=== PATIENT | female | born 1990 | race Caucasian/White ===

== ENCOUNTER 2018-12-04 16:06 | Outpatient (CLI) | payer BC, SELFPAY | END 2018-12-04 16:26 | PROVIDERS: PCP General Practice; Visit Provider General Practice | DX: C73 Malignant neoplasm of thyroid gland (principal) | CPT/HCPCS: 36415; 84443 ==

== ENCOUNTER 2019-07-27 19:27 | Emergency (ER) | payer BC, SELFPAY ==
[2019-07-27 19:31] VITALS: BP 120/76; PULSE 97; RESP 18; TEMP 37.2; O2SAT 97
--- NOTE | 2019-07-27 19:45 | DI.RAD_ITS ---
EXAM: XR CHEST 2V PA LATERAL INDICATION: cough. COMPARISON: No exams were available for comparison TECHNIQUE: 2D digital imaging was performed. FINDINGS: The lungs are well expanded and free of infiltrate. There is no pleural effusion. The heart is not enlarged. The hilar structures, mediastinum and tracheal air column are intact. IMPRESSION: No evidence of acute cardiopulmonary disease.
--- NOTE | 2019-07-27 19:47 | ED.GENADUL_ITS ---
Discharge Plan Disposition Patient Disposition: HOME Discharge Details Chief Complaint: RespSymp Clinical Impression: URI (upper respiratory infection) Primary Care Provider: Abdirizak Michael ED Provider: Davonte Jain Home Meds and New Rx's Prescriptions: Continued (21) 1 EACH tablet 1 tab-cap PO DAILY Qty: 4 RF: 6 fluticasone furoate 27.5 mcg/actuation [place],Suspension See Rx Instructions .ROUTE .COMPLEX RF: 0 sumatriptan succinate [Imitrex] 25 MG tablet 25 mg PO BID PRN PRN (Reason: Headache) Qty: 6 RF: 0 Discharge Instructions Instructions: Albuterol (By breathing), How to Stop Smoking (ED), Upper Respiratory Infection (ED) Additional Instructions: Please drink plenty of fluids to stay hydrated. Use albuterol inhaler with spacer: Inhaled 2 puffs every 4 hours as needed for wheezing. Please contact your primary care physician to arrange follow-up. Call tomorrow. Return to the ER for any worsening or new concerning symptoms. Referrals: Abdirizak Michael MD [Primary Care Provider] - Medical Decision Making 19:50 --29-year-old female smoker here with URI symptoms including sinus congestion and cough with intermittent fever over the past 2 weeks, now with more persistent, worsening cough for the past few days. Heart rate is slightly elevated. She saturating well with no respiratory distress. She does have some wheeze bilateral lungs. Consider pneumonia. Plan to check chest x-ray. Suspect reactive airway disease. Plan to treat with albuterol neb and reassess. 20:25 --patient reassessed after neb and breathing much easier. Lungs clear. Chest x-ray was reviewed and interpreted by radiology: No acute cardiopulmonary pathology. Suspect viral process persisting with reactive airway disease. I will give her albuterol inhaler and spacer. Plan will be for her to follow-up with her primary care physician. I did have a conversation with the patient about smoking cessation. She does seem motivated. I encouraged her to talk to her primary care physician about this. Usual and customary discharge instructions were provided. HPI General Mode of arrival: ambulatory . Date/Time Provider Initiated Documentation: 07/27/19 19:35 . Limitations to Documentation: no limitations . Information obtained by: patient . HPI Narrative: 29-year-old female here with chief complaint of cough. Patient notes she has has had URI symptoms for the past 2 weeks. She notes that she had sinus congestion and cough. Sinus symptoms have resolved but cough has worsened over the past few days. She also notes intermittent fever. No associated shortness of breath but she has had some wheezing. Patient is a smoker. Family members including daughter and significant other sick with similar but now resolved. No recent long distance travel. Related Data Home Medications Medication Instructions Recorded Confirmed Junel .04/02 (21) 1 tab-cap PO DAILY #4 pack 10/22/16 07/27/19 sumatriptan succinate [Imitrex] 25 mg PO BID PRN PRN #6 tab 11/13/16 07/27/19 fluticasone furoate See Rx Instructions .ROUTE .COMPLEX 07/27/19 07/27/19 Previous Rx's Medication Instructions Recorded sumatriptan succinate [Imitrex] 25 mg PO BID PRN PRN #6 tab 11/13/16 Allergies Allergy/AdvReac Type Severity Reaction Status Date / Time No Known Allergies Allergy Unverified 07/27/19 19:35 General Stated Complaint: RespSymp JODY: 4 Review of Systems Review of Systems ROS Unobtainable: All systems reviewed & are unremarkable except as noted in HPI and below Constitutional Constitutional: Reports fever(s) ENT Ears, Nose, Mouth, and Throat: Reports as per HPI Cardiovascular Cardiovascular: Denies chest pain Respiratory Respiratory: Reports cough and Reports wheezing Integumentary/Breasts Skin/Breast: Denies rash Allergic/Immunologic Allergic/Immunologic: Reports wheezing [facility] Social History Smoking/Tobacco Use Status: Current every day Tobacco Type: cigarettes Alcohol Intake: current Alcohol Intake frequency: holidays/special occasions only Drug use: Never Substance use type: does not use Do you feel safe at home: Yes Do you feel safe in your relationship?: Yes Exam Const General: cooperative and no acute distress HENMT Mouth: moist mucous membranes Eyes Conjunctivae: normal conjunctivae Sclera: normal sclerae Neck Neck: trachea midline and supple Resp Auscultation: no rales, no rhonchi and wheezes expiratory wheezes and lower bilaterally Cardio Jugular venous pressure: no JVD Rate: regular rate and not tachycardic Rhythm: regular rhythm Skin General skin exam: no rashes or lesions noted Neuro General: alert, awake and tone normal Extrem General: no edema Course Vital Signs Vital signs: Vital Signs Temperature 37.2 C 07/27/19 19:31 Pulse 97 H 07/27/19 19:31 Respiratory Rate 18 07/27/19 19:31 Blood Pressure 120/76 07/27/19 19:31 Pulse Oximetry 97 07/27/19 19:31 Temperature 37.2 C 07/27/19 19:31 Pulse 97 H 07/27/19 19:31 Respiratory Rate 18 07/27/19 19:31 Respiratory Effort Non-Labored 07/27/19 19:37 Blood Pressure 120/76 07/27/19 19:31 Pulse Oximetry 97 07/27/19 19:31 Oxygen Delivery Method Room Air 07/27/19 19:31 Oxygen Flow Rate 0 07/27/19 19:31 Pain Level 8 07/27/19 19:31
[2019-07-27] MEDS: Albuterol 2.5 MG/3 ML INH SOLN VIAL UPD (20:02)
--- NOTE | 2019-07-27 20:19 | DI.VRAD_ITS ---
PROCEDURE INFORMATION: Exam: XR Chest, 2 Views Exam date and time: 07/27/2019 19:47 Clinical history: 29 years old, female; Patient HX: Cough with burning today, recent uri TECHNIQUE: Imaging protocol: XR of the chest Views: 2 views. COMPARISON: No relevant prior studies available. FINDINGS: Lungs: No consolidation. Pleural space: No pleural effusion. No pneumothorax. Heart/Mediastinum: No cardiomegaly. Bones/joints: No acute fracture. IMPRESSION: No acute cardiopulmonary pathology. Dictated and Authenticated by: Tori Beltran MD. Ordering:KERRY Arauz MD
[2019-07-27] MEDS: Albuterol HFA 8 GM 60 PUFF INH IH (20:35)
== END 2019-07-27 20:39 | disposition home or self-care (01) ==
PROVIDERS: Emergency Provider Student in an Organized Health Care Education/Training Program; PCP General Practice
DX: J06.9 Acute upper respiratory infection, unspecified (principal)
CPT/HCPCS: 94640; 99283; 71046; J7613

== ENCOUNTER 2021-01-02 14:58 | Outpatient (REF) | payer BC, SELFPAY ==
[2021-01-02 13:22] LABS: HCT 37.1 % (36.0-46.0); HGB 12.6 g/dL (11.2-15.7); MCH 28.1 pg (27.0-33.0); MCV 82.8 fL (80-95); MPV 10.5 fL (8.0-11.0); Platelet Count 296 10^3/uL (130-400); RBC 4.48 10^6/uL (3.93-5.22); RDW 13.1 % (11.7-14.6); RDW-SD 39.2 fL; WBC 5.05 10^3/uL (4.4-10.8)
[2021-01-02 13:31] LABS: ALT 21 U/L (14-59); AST 12 U/L (15-37); Albumin 3.6 g/dL (3.4-5.0); Alkaline Phosphatase 62 U/L (46-116); Anion Gap 5.3 mmol/L (3-11); BUN 14 mg/dL (7-18); Bilirubin, Total 0.5 mg/dL (0.2-1.0); CO2 26.7 mmol/L (21.0-32.0); CREATININE 0.7 mg/dL (0.55-1.02); Calcium 8.7 mg/dL (8.5-10.1); Calculated LDL 107 mg/dL (<100); Chloride 104 mmol/L (98-107); Cholesterol 158 mg/dL (<200); Glucose 81 mg/dL (74-106); HDL Cholesterol 40 mg/dL (40-60); Potassium 4.5 mmol/L (3.5-5.1); Sodium 136 mmol/L (136-145); Total Protein 6.9 g/dL (6.4-8.2); Triglyceride 55 mg/dL (<150)
== END 2021-01-02 14:59 | disposition home or self-care (01) ==
LOC: NCHCN 14:58
PROVIDERS: PCP Family Medicine; Visit Provider Family Medicine
DX: Z00.00 Encounter for general adult medical examination without abnormal findings (principal); C73 Malignant neoplasm of thyroid gland; E05.00 Thyrotoxicosis with diffuse goiter without thyrotoxic crisis or storm; E66.3 Overweight
CPT/HCPCS: 80053; 80061; 85027

== ENCOUNTER 2021-01-12 15:58 | Outpatient (REF) | payer BC, SELFPAY ==
--- NOTE | 2021-01-12 14:00 | PAPFT_PTH ---
PATIENT: Savannah Cardenas LOC: [facility] U#:[id number] AGE/SX: 30/F ROOM: RE01/12/[address]: Skyla Hemphill : 1990 BED: DIS: 01/12/2021 SPEC #: [id number] RECD: 01/13/21 12:55 STATUS: DONNA REMaureen #: [id number] GABINO: 01/12/21 14:[address]: Skyla Hemphill DEPT: [facility] Cytology RECD BY: Aniyah Rodriguez Tissues: 1 - CX/ENDOCX FOR PAP SMEARS Procedures: PAP THIN PREP/UVM Screening HPV DNA PROBE Comments: [id number]
== END 2021-01-12 15:59 | disposition home or self-care (01) ==
LOC: NCHCN 15:58
PROVIDERS: PCP Family Medicine; Visit Provider Family Medicine
DX: Z12.4 Encounter for screening for malignant neoplasm of cervix (principal); Z00.00 Encounter for general adult medical examination without abnormal findings; Z01.419 Encounter for gynecological examination (general) (routine) without abnormal findings; Z11.51 Encounter for screening for human papillomavirus (HPV)
CPT/HCPCS: 88142; 87624

== ENCOUNTER 2022-03-23 18:11 | Outpatient (REF) | payer BC, SELFPAY ==
[2022-03-25 14:35] LABS: COVID-19 RT-PCR UVMMC Result Negative (Negative)
== END 2022-03-23 18:12 | disposition home or self-care (01) ==
LOC: NCHCN 18:11
PROVIDERS: PCP Family Medicine; Visit Provider Family Medicine
DX: Z20.822 Contact with and (suspected) exposure to COVID-19 (principal)
CPT/HCPCS: U0003

== ENCOUNTER 2022-06-18 10:15 | Outpatient (REF) | payer BC, SELFPAY ==
--- NOTE | 2022-06-18 09:15 | SKI_PTH ---
PATIENT: Savannah Cardenas LOC: [facility] U#:[id number] AGE/SX: 32/F ROOM: RE06/18/[address]: Skyla Hemphill : 1990 BED: DIS: 06/18/2022 SPEC #: [id number] RECD: 06/18/22 14:50 STATUS: DONNA REMaureen #: [id number] GABINO: 06/18/22 09:[address]: Skyla Hemphill DEPT: Surgical Specimen RECD BY: Lucretia Owens Tissues: 1 - SKIN BIOPSY(SHAVE/PUNCH) Procedures: SKIN LEVEL 4 Comments: [id number]
== END 2022-06-18 10:16 | disposition home or self-care (01) ==
LOC: NCHCN 10:15
PROVIDERS: PCP Family Medicine; Visit Provider Family Medicine
DX: D23.71 Other benign neoplasm of skin of right lower limb, including hip (principal)
CPT/HCPCS: 88305

== ENCOUNTER 2023-02-25 09:45 | Emergency (ER) | payer BC, SELFPAY ==
--- NOTE | 2023-02-25 09:45 | RT.EKG_ITS ---
APPROVED REPORT Exam: Resting ECG Reason for Exam: chest pain Patient Location: E HR:98 bpm ECG Measurements Heart Rate 98 AXIS WA 132 P 49 QRSd 73 QRS 41 QT 349 T 43 QTc 445 Conclusion Sinus rhythm...normal P axis, V-rate 60- 99
[2023-02-25 09:50] VITALS: BP 143/88; PULSE 105; RESP 20; TEMP 37.1; O2SAT 98
--- NOTE | 2023-02-25 09:55 | W.ED.GENAD ---
Discharge Plan Disposition Patient Disposition: Home Discharge Details Clinical Impression: COVID-19 Primary Care Provider: Chung Hemphill ED Provider: Eliseo Hamm Meds and New Rx's Prescriptions: Continued (21) 1 EACH tablet 1 tab-cap PO DAILY Qty: 4 Rx Instructions: 1 tab PO daily for 12 weeks, then off 4 days for q3mon menses fluticasone furoate 27.5 mcg/actuation [place],Suspension See Rx Instructions .ROUTE .COMPLEX Rx Instructions: use as directed citalopram 20 mg tablet 20 mg PO DAILY Patient Comments: TAKE ONE TABLET BY MOUTH EVERY DAY levothyroxine 125 mcg tablet 125 mcg PO DAILY Patient Comments: TAKE 1 TABLET BY MOUTH 3 DAYS A WEEK, SATURDAY, SATURDAY, AND SATURDAY sumatriptan succinate [Imitrex] 25 MG tablet 25 mg PO BID PRN PRN (Reason: Headache) Qty: 6 0RF Discharge Instructions Instructions: Viral Syndrome (ED), COVID-19 (Coronavirus Disease 2019) (ED) Discharge Data Discharge Date/Time-TO BE ENTERED AT DEPARTURE: 02/25/23 11:25 Discharge Physician: Eliseo Hamm Medical Decision Making Patient who has had COVID-19 infection for the last 5 days with cough congestion who was sent by her primary care physician. To the ED for evaluation. Data was reviewed by me including vital signs and physical exam labs and imaging. Chest x-ray did not show any abnormality as read by me and the radiologist, labs are unremarkable to include troponin and renal function tests and white count are normal. EKG did not show any acute changes as read by me. Shared decision making: I spoke with the patient and she will be sent home we will continue supportive measurements she declined to get the Paxil it. Recommend 5 days and will discuss with the primary care physician. She will continue to isolate herself. Condition on discharge is good Differential Diagnosis Differential Diagnosis: 1. COVID-19 infection 2. COVID-19 pneumonia 3. COVID-19 ARDS Medical Records Medical records reviewed: Yes I reviewed the patient's medical records. Imaging Data Radiologic Study: Imaging: X-Ray My impression: X-rays did not show any infiltrates or any abnormality as read by me Lab Data Lab results reviewed: Yes I reviewed the patient's lab results. ECG Data Attestation: I personally reviewed and interpreted this ECG (s) as follows: Interpretation: Normal axis heart rate 98 regular rate rhythm normal [place] intervals no ST-T changes normal EKG HPI General Date/Time Provider Initiated Documentation: 02/25/23 09:55. HPI Narrative: Patient presents to the emergency department complaining of left-sided substernal pleuritic type chest pain which she rates about a 6/10 which to his arises when she coughs. Denies any shortness of breath. Reports that she tested positive for COVID 5 days ago has been symptomatic with cough congestion low-grade fever and clear rhinorrhea. Reports cough nonproductive sputum denies shortness of breath. Patient is vaccinated. Pain does not radiate. Related Data Home Medications Medication Instructions Recorded Confirmed norethindrone acetate 1.5 1 tab-cap PO DAILY ##4 10/22/16 07/27/19 mg-ethinyl estradiol 30 mcg tablet (Junel) sumatriptan succinate 25 mg tablet 25 mg PO BID PRN PRN Headache #6 11/13/16 07/27/19 (Imitrex) tabs fluticasone furoate 27.5 See Rx Instructions .Route .COMPLEX 07/27/19 02/25/23 mcg/actuation nasal spray,suspension citalopram 20 mg tablet 20 mg PO DAILY 02/25/23 02/25/23 levothyroxine 125 mcg tablet 125 mcg PO DAILY 02/25/23 02/25/23 Previous Rx's Medication Instructions Recorded sumatriptan succinate 25 mg tablet 25 mg PO BID PRN PRN Headache #6 11/13/16 (Imitrex) tabs Allergies Allergy/AdvReac Type Severity Reaction Status Date / Time No Known Allergies Allergy Unverified 02/25/23 09:58 General JODY: 4 Review of Systems All systems reviewed & are unremarkable except as noted in HPI and below Constitutional Constitutional: Reports as per HPI, Reports body ache(s) and Reports fever(s) Eyes Eyes: Reports as per HPI ENT Ears, Nose, Mouth, and Throat: Reports nasal congestion and Reports sore throat Cardiovascular Cardiovascular: Reports as per HPI Respiratory Respiratory: Reports as per HPI Gastrointestinal Gastrointestinal: Reports as per HPI Musculoskeletal Musculoskeletal: Reports system reviewed and no additional complaints, except as documented Neurologic Neurologic: Reports system reviewed and no additional complaints, except as documented PFSH All Active Problems (Updated 02/25/23 @ 11:24 by Eliseo Hamm MD) COVID-19 (Acute) Thyroid cancer (Acute) 2019. Multifocal papillary thyroid cancer. s/p I?131 treatment at [facility]. Social History Smoking/Tobacco Use Status: Former Tobacco Use Smoking risk assessment performed?: Yes Alcohol Intake: current Alcohol Intake frequency: holidays/special occasions only Drug use: Never Substance use type: does not use Do you feel safe at home: Yes Do you feel safe in your relationship?: Yes Exam Const General: cooperative, healthy appearing, comfortable, no acute distress and well developed HENMT Head: normal to inspection Ears: hearing grossly normal bilaterally Mouth: oral mucosae normal, lip normal, tongue normal, oropharynx normal and moist mucous membranes Eyes General: appearance normal, both eyes and all related structures Visual Lees: normal visual lees by confrontation Conjunctivae: conjunctivae normal Cornea: corneas normal Pupils: PERRL Neck Neck: normal visual inspection Thyroid: thyroid normal Lymphatic: no lymphadenopathy noted Chest Chest: normal inspection of the chest and normal palpation of entire chest wall Resp Effort & Inspection: normal respiratory effort and able to speak in complete sentences Auscultation: clear to auscultation bilaterally Cardio Jugular venous pressure: no JVD Rate: regular rate Rhythm: regular rhythm GI Inspection: normal to inspection Palpation: soft Skin General skin exam: no rashes or lesions noted Neuro General: patient alert, patient awake and patient oriented x3 Cranial Nerves: CN's II-XI intact bilaterally Cognition: normal cognition Speech: speech normal Gait: normal gait Motor: muscle tone normal throughout and movement abnormality noted Sensory Exam: no sensory deficits noted Extrem General: normal to inspection and no pedal edema Course Lab/Test Results Lab/Test Results: RUN DATE: 02/25/23 [facility] PAGE 1 RUN TIME: [id number] RUN USER: [place] [address] Agueda Meléndez MD PATIENT REPORT PATIENT: Savannah Cardenas LOC: ER U #: [id number] /SX: 1990 F ROOM: RE02/25/[address]: Eliseo Hamm M.D. STATUS: REG ER BED: DIS: SPEC #: [id number] GABINO: 02/25/23 STATUS: COMP REQ #: [id number] RECD: 02/25/[address]: Eliseo Hamm M.D. ENTERED: 02/25/[address]: CHUNG HEMPHILL FAX #: ORDERED: CBC/Diff Test Result Flag Reference Verified WBC 4.22 L 4.4-10.8 10^3/uL 02/25/23 RBC 4.73 3.93-5.22 10^6/uL 02/25/23 HGB 12.8 11.2-15.7 g/dL 02/25/23 HCT 38.0 36.0-46.0 % 02/25/23 MCV 80 80-95 fL 02/25/23 MCH 27.1 27.0-33.0 pg 02/25/23 MCHC 33.7 32.0-36.0 % 02/25/23 RDW 13.5 11.7-14.6 % 02/25/23 Platelet Count 256 130-400 10^3/uL 02/25/23 large platlets MPV 9.7 8.0-11.0 fL 02/25/23 Neutrophils % 58.4 02/25/23 Lymphocytes % 25.6 02/25/23 Monocytes % 14.9 02/25/23 Eosinophils % 0.2 02/25/23 Basophils % 0.7 02/25/23 Immature Grans % 0.2 02/25/23 Nucleated RBC 0.0 0.0-0.3 % 02/25/23 Absolute Neutrophil Count 2.46 1.2-6.7 10^3/uL 02/25/23 Absolute Lymphocyte Count 1.08 L 1.2-3.4 10^3/uL 02/25/23 Absolute Monocyte Count 0.63 0.1-0.8 10^3/uL 02/25/23 Absolute Eosinophil Count 0.01 0.0-0.7 10^3/uL 02/25/23 Absolute Basophil Count 0.03 0.0-0.2 10^3/uL 02/25/23 Patient: Savannah Cardenas LABORATORY Acct#[id number] Unit#[id number] RUN DATE: 02/25/23 [facility] PAGE 1 RUN TIME: [id number] RUN USER: [place] [address] Agueda Meléndez MD PATIENT REPORT PATIENT: Savannah Cardenas LOC: ER U #: [id number] /SX: 1990 F ROOM: RE02/25/[address]: Eliseo Hamm M.D. STATUS: REG ER BED: DIS: SPEC #: [id number] GABINO: 02/25/23 STATUS: COMP REQ #: [id number] RECD: 02/25/[address]: Eliseo Hamm M.D. ENTERED: 02/25/[address]: CHUNG HEMPHILL FAX #: ORDERED: CMP, MG, Troponin I Test Result Flag Reference Verified Calcium 8.8 8.5-10.1 mg/dL 02/25/23 Glucose 102 74-106 mg/dL 02/25/23 BUN 9 7-18 mg/dL 02/25/23 Creatinine 0.8 0.55-1.02 mg/dL 02/25/23 Estimated GFR 99.71 mL/min/1.73m2 02/25/23 The eGFR is calculated from a serum creatinine using the CKD-EPI 2020 equation. Other variables required for the equation are gender and age; this equation does not include a race coefficient. This equation has similar overall performance to previous equations except values may differ, in particular, in patients with higher values of eGFR and younger-aged adults. Total Protein 8.0 6.4-8.2 g/dL 02/25/23 Albumin 3.5 3.4-5.0 g/dL 02/25/23 Bilirubin, Total 0.4 0.2-1.0 mg/dL 02/25/23 Alk Phos 62 46-116 U/L 02/25/23 Sodium 138 136-145 mmol/L 02/25/23 Potassium 4.0 3.5-5.1 mmol/L 02/25/23 Chloride 104 98-107 mmol/L 02/25/23 CO2 25.3 21.0-32.0 mmol/L 02/25/23 Anion Gap 8.7 3-11 mmol/L 02/25/23 AST 21 15-37 U/L 02/25/23 ALT 23 14-59 U/L 02/25/23 Magnesium 2.1 1.8-2.4 mg/dL 02/25/23 Cardiac Troponin I < 50 <or=60 ng/L 02/25/23 Patient: Savannah Cardenas LABORATORY Acct#[id number] Unit#[id number] All labs reviewed by me are normal PAWSS Have you Been Recently Intoxicated or Drunk Within the Last 30 days?: No Have you Ever Experienced Previous Episodes of Alcohol Withdrawal?: No Have you ever Experienced Withdrawal Seizures?: No Have you ever Experienced Delirium Tremens(DT)s?: No Have you ever undergone Alcohol Rehabilitation Treatment (i.e, inpt ot outpatient treatment programs)?: No Have you ever Experienced Blackouts?: No Have you ever Combined Alcohol with other Downers within the last 90 days?: No Have you ever Combined Alcohol with any other Substance of Abuse during the last 90 days?: No Positive Blood Alcohol level on Presentation? [PCS.BAL]: No Evidence of Increased Autonomic Activity (i.e. HR>120, tremor, sweating, agitation, nausea)?: No Result: 0
--- NOTE | 2023-02-25 10:00 | DI.RAD_ITS ---
Exam(s) XR PORTABLE CHEST AP EXAM: XR PORTABLE CHEST AP CLINICAL HISTORY: covid positive, chest pain TECHNIQUE: 2D digital imaging was performed of the chest. One image was obtained. An AP view was ob tained. COMPARISON: CR,XR XR CHEST 2V PA LATERAL from 07/27/2019 FINDINGS: MEDIASTINUM: Normal. HEART: Normal. PULMONARY VASCULATURE: Normal. LUNGS: Clear. PLEURAL SPACE: No pleural effusion or pneumothorax. BONE:Within normal limits for the patient's age. OTHER FINDINGS:Normal. IMPRESSION: No acute pulmonary findings. DATA REPOSITORY: RADIATION DOSE DELIVERED:
[2023-02-25 10:25] LABS: Abs Immature Grans 0.01 10^3/uL (0.0-0.06); Absolute Basophil Count 0.03 10^3/uL (0.0-0.2); Absolute Eosinophil Count 0.01 10^3/uL (0.0-0.7); Absolute Lymphocyte Count 1.08 10^3/uL (1.2-3.4); Absolute Monocyte Count 0.63 10^3/uL (0.1-0.8); Absolute Neutrophil Count 2.46 10^3/uL (1.2-6.7); Basophils % 0.7; Eosinophils % 0.2; HGB 12.8 g/dL (11.2-15.7); Immature Grans % 0.2; Lymphocytes % 25.6; MCH 27.1 pg (27.0-33.0); MCHC 33.7 % (32.0-36.0); MCV 80 fL (80-95); MPV 9.7 fL (8.0-11.0); Monocytes % 14.9; Neutrophils % 58.4; RBC 4.73 10^6/uL (3.93-5.22); RDW 13.5 % (11.7-14.6); RDW-SD 39.2 fL; WBC 4.22 10^3/uL (4.4-10.8)
[2023-02-25 10:37] LABS: Platelet Count 256 10^3/uL (130-400)
[2023-02-25 10:44] LABS: ALT 23 U/L (14-59); AST 21 U/L (15-37); Albumin 3.5 g/dL (3.4-5.0); Alkaline Phosphatase 62 U/L (46-116); Anion Gap 8.7 mmol/L (3-11); BUN 9 mg/dL (7-18); Bilirubin, Total 0.4 mg/dL (0.2-1.0); CO2 25.3 mmol/L (21.0-32.0); CREATININE 0.8 mg/dL (0.55-1.02); Calcium 8.8 mg/dL (8.5-10.1); Chloride 104 mmol/L (98-107); Estimated GFR 99.71 (mL/min/1.73m2); Glucose 102 mg/dL (74-106); Magnesium 2.1 mg/dL (1.8-2.4); Sodium 138 mmol/L (136-145); Troponin I < 50 ng/L (<or=60)
== END 2023-02-25 11:42 | disposition home or self-care (01) ==
PROVIDERS: Emergency Provider Emergency Medicine Emergency Medical Services; PCP Family Medicine
DX: U07.1 COVID-19 (principal)
CPT/HCPCS: 80053; 93005; 99283; 71045; 83735; 84484; 85025; 93010

== ENCOUNTER 2024-06-16 03:17 | Outpatient (CLI) | payer BC, SELFPAY ==
--- NOTE | 2024-06-16 13:48 | W.NUTRFU ---
Date of service: 06/16/24 Time of Service: 03:00 Nutrition Note NOTE: Savannah comes in for referred nutrition visit regarding weight mgt struggles. She states she is the heaviest she has been in her life. She was able to lose weight after her dtr was born (now age 9) but feels like a lot of it has to do with her thyroid being effected after surgery to remove malignant tumor. However, she also confirms that she often has an inconsistent eating pattern and tends to be somewhat picky when it comes to smells and textures (will not eat most seafood due to smell, and will not eat legumes due to textures as some examples). She denies any food allergies. She does not currently take any nutrition supplements. She does not engage in any scheduled intense exercise but does walk on occasion but was told walking won't help with weight loss goals. Savannah describes her eating pattern as grazing. She doesn't usually drink water all that much and prefers diet coke. We reviewed, to help lose extra weight, she will need to be proactive with her diet, whether she uses more processes foods or traditional foods she will need to set up a plan. Encouraged 3 meals and no more than 2 PLANNED snacks per day. We discussed grazing vs. eating enough to go at good 2-3 hours without food so energy from the previous meal can be used before adding more. If needs to eat more frequently needs to focus on less starch/sugar and more fiber and protein choices. Suggested moving away from artificial sweeteners due to probable deleterious effects on gut microbiome and also possible insulin release due to perceived sweetness. Encouraged standard Multivitamin/mineral supplment with extra D3 taken at 2,000IU. We looked at how to set up an eating template focusing on meal timing and combinations that will help meet protein goal of ~115g and ~190g CHO for a 1900 kcal diet. Also emphasized benefits of tracking added sugar intake and fiber intake and making sure averages are 25grams or less and 25grams or more, respectively. Pt took my card to contact with any need for follow up, more resources, or get any nutrition questions answered regarding hew nutrition needs to meet her goal. Time Spent in Nutritional Counseling and Treatment: 30 min
== END 2024-06-16 03:18 | disposition home or self-care (01) ==
LOC: DS 03:17
PROVIDERS: PCP Family Medicine; Visit Provider Dietitian, Registered
DX: Z71.3 Dietary counseling and surveillance (principal)
CPT/HCPCS: 00123; 97802

== ENCOUNTER 2024-11-19 16:41 | Outpatient (REF) | payer BC, SELFPAY ==
[2024-11-19 20:58] LABS: HCT 40.2 % (36.0-46.0); HGB 13.4 g/dL (11.2-15.7); MCH 27.5 pg (27.0-33.0); MCHC 33.3 % (32.0-36.0); MCV 83 fL (80-95); MPV 10.3 fL (8.0-11.0); Platelet Count 389 10^3/uL (130-400); RBC 4.87 10^6/uL (3.93-5.22); RDW 13.3 % (11.7-14.6); RDW-SD 39.4 fL; WBC 5.12 10^3/uL (4.4-10.8)
[2024-11-19 21:17] LABS: Iron 50 ug/dL (50-170); Total Iron Binding Capacity 329 ug/dL (250-450)
[2024-11-19 21:26] LABS: Ferritin 36 ng/mL (8-252)
== END 2024-11-19 16:42 | disposition home or self-care (01) ==
LOC: NCHCN 16:41
PROVIDERS: PCP Family Medicine; Visit Provider Nurse Practitioner Family
DX: F41.9 Anxiety disorder, unspecified (principal)
CPT/HCPCS: 85027; 82728; 83540; 83550; 84443